=== PATIENT | male | born 1960 | race Caucasian/White ===

== ENCOUNTER 2023-05-26 11:16 | Emergency (ER) | payer BC, SELFPAY ==
[2023-05-26 11:24] VITALS: BP 156/67; PULSE 56; RESP 18; TEMP 36.3; O2SAT 100
--- NOTE | 2023-05-26 11:50 | ED.SKABFB ---
HPI - Skin/Abscess/Foreign Bdy General Chief complaint: Skin/Abscess/Foreign Body Stated complaint: Insect Bite Lt Arm Source: patient Mode of arrival: ambulatory Limitations: no limitations History of Present Illness HPI narrative: 61-year-old male presents to [facility] with complaints of possible bug bite with surrounding erythema to his left upper arm for the past 5 days. Patient reports he has noticed increasing redness and warmth to the area 3 days ago. Patient denies fever, body aches, chills, nausea vomiting or diarrhea. Patient has been applying [id number] hydrocortisone cream with minimal relief. Patient reports that he does have itching to the area. MD complaint: rash and insect bite/sting Onset (ago): day(s) (5) Location: LUE Quality: pruritic Associated symptoms: itching Related Data Allergies Allergy/AdvReac Type Severity Reaction Status Date / Time No Known Allergies Allergy Verified 05/26/23 11:22 Review of Systems Constitutional: Constitutional: Denies chills, Denies fatigue, Denies fever(s) and Denies weakness ENT: Denies dizziness, Denies epistaxis, Denies nasal congestion and Denies sore throat Cardiovascular: Cardiovascular: Denies chest pain Respiratory: Respiratory: Denies cough, Denies dyspnea and Denies wheezing Gastrointestinal: Gastrointestinal: Denies abdominal pain, Denies diarrhea, Denies nausea and Denies vomiting Integumentary/Breasts: Skin/Breast: Reports pruritus, Reports erythema, Reports rash and Denies skin ulcer Hematologic/Lymphatic: Hematologic/Lymphatic: Denies easy bleeding and Denies easy bruising PMFSH Family History Family History Father Hypertension Cerebrovascular accident Carcinoma of colon Social History Social History Smoking status: Never smoker Alcohol intake: current Comments At time of signature, I agree with nursing past medical, surgical, social and family history. There is no relevant family history pertinent to the presenting complaint. Exam Const: General: healthy appearing Nutritional Appearance: well nourished Orientation/consciousness: patient oriented x3 Limitations: no limitations HENMT: Head: normal to inspection Eyes: Conjunctivae: conjunctivae normal Neck: Neck: normal visual inspection Resp: Effort & Inspection: normal respiratory effort and not labored Auscultation: clear to auscultation bilaterally, no crackles, no rales, no rhonchi and no wheezes Cardio: Rate: regular rate Rhythm: regular rhythm Heart sounds: no murmurs Skin: General skin exam: normal color Wounds: no wounds Other: There is a raised warmth erythematous area to left upper arm measuring 25 cm x 15 cm. No obvious puncture wound noted. No necrotic tissue, bruising or bleeding noted. Neuro: General: patient oriented x3 Speech: normal speech Psych: Affect: normal affect Attitude: cooperative Course Course Level of Care: Express Care Visit Vital Signs Vital signs: Vital Signs Temperature 36.3 C L 05/26/23 11:24 Pulse Rate 56 L 05/26/23 11:24 Respiratory Rate 18 05/26/23 11:24 Blood Pressure 156/67 H 05/26/23 11:24 Pulse Oximetry 100 05/26/23 11:24 Oxygen Delivery Room Air 05/26/23 11:24 Temperature 36.3 C L 05/26/23 11:24 Pulse Rate 56 L 05/26/23 11:24 Respiratory Rate 18 05/26/23 11:24 Blood Pressure 156/67 H 05/26/23 11:24 Pulse Oximetry 100 05/26/23 11:24 Oxygen Delivery Room Air 05/26/23 11:24 MDM - Skin/Abscess/Foreign Bdy MDM Narrative Medical decision making narrative: Area of erythema was marked with a skin marker and patient agrees to monitor the area closely. Patient agrees take medications as prescribed. Patient agrees to follow-up with primary care provider in 48 hours if symptoms do not improve. Patient agrees to proceed to the emergency room if symptoms worsen
== END 2023-05-26 11:59 | disposition home or self-care (01) ==
PROVIDERS: Emergency Provider Nurse Practitioner Family; PCP Physician Assistant
DX: L03.114 Cellulitis of left upper limb (principal); S40.862A Insect bite (nonvenomous) of left upper arm, initial encounter; W57.XXXA Bitten or stung by nonvenomous insect and other nonvenomous arthropods, initial encounter
CPT/HCPCS: 99213; G0463